=== PATIENT | female | born 1990 | race Two or more races ===

== ENCOUNTER 2022-03-07 17:45 | Emergency (ER) | payer MEDICAID ==
[~2022-03-07] VITALS: Ht 154.9 cm; Wt 65.0 kg
[2022-03-07 22:40] LABS: Basophils # (auto) 0.1 10 ^3/uL (0-0.2); Basophils % (auto) 0.8 % (0.0-2.0); Eosinophils # (auto) 0.1 10 ^3/uL (0-0.8); Eosinophils % (auto) 1.2 % (0.0-7.0); Hematocrit 36.7 % (36.0-46.0); Hemoglobin 12.3 g/dL (12.2-16.2); Lymphocytes # (auto) 2.5 10 ^3/uL (0.4-5.4); Lymphocytes % (auto) 26.5 % (10.0-50.0); Mean Corpuscular Hemoglobin 30.2 pg (28.0-32.0); Mean Corpuscular Hgb Conc. 33.4 g/dL (32.0-36.0); Mean Corpuscular Volume 90.5 fL (80.0-100.0); Monocytes # (auto) 0.6 10 ^3/uL (0-1.3); Monocytes % (auto) 6.8 % (0.0-12.0); Neutrophils # (auto) 6.1 10 ^3/uL (1.6-8.6); Neutrophils % (auto) 64.7 % (37.0-80.0); Red Blood Cells 4.06 10^6/uL (4.0-5.20); Red Cell Distribution Width 13.7 % (11.8-14.3); White Blood Cell 9.4 10^3/uL (4.4-10.8)
[2022-03-07 22:54] LABS: Albumin 2.7 g/dL (3.4-5.0); BUN/Creatinine Ratio 14.6; Calcium 8.9 mg/dL (8.5-10.1); Potassium 4.2 mmol/L (3.5-5.1)
[2022-03-07 22:58] LABS: Bilirubin, Total 0.4 mg/dL (0.2-1.0)
[2022-03-08 10:40] VITALS: BP 99/65
== END 2022-03-08 12:21 | disposition home or self-care (01) ==
LOC: ER 17:46
DX: O26.893 Other specified pregnancy related conditions, third trimester (principal); B04 Monkeypox; Z3A.28 28 weeks gestation of pregnancy
CPT/HCPCS: 36415; 76805; 80053; 84702; 85025

== ENCOUNTER 2022-05-20 07:46 | Inpatient (IN) | payer MEDICAID ==
[~2022-05-20] VITALS: Ht 157.5 cm; Wt 65.3 kg
[2022-05-20] MEDS ORDERED: PROMETHAZINE HCL 25 MG/ML 1ML IV PRN (08:30)
[2022-05-20] MEDS ORDERED: WITCH HAZEL-GLYCERIN PAD TOP PRN (08:30)
[2022-05-20] MEDS ORDERED: LIDOCAINE 2%HCL (LOCAL ANESTH.) INJ 10ml MDV IJ PRN (08:30)
[2022-05-20] MEDS ORDERED: DERMOPLAST 60ML BOTTLE TOP PRN (08:30)
[2022-05-20] MEDS ORDERED: BUTORPHANOL TARTRATE 2 MG/1 ML VIAL IV PRN ×2 (08:30)
[2022-05-20] MEDS ORDERED: PHISODERM TOP SOLN 240ML BTL TOP PRN (08:30)
[2022-05-20 09:00] LABS: Urine Bacteria NONE SEEN /hpf (None Seen); Urine Blood 2+ /uL (Negative); Urine Hyaline Cast FEW /lpf (0 - 2); Urine Specific Gravity 1.013 (1.001-1.035); Urine WBC 3 /hpf (0 - 5)
[2022-05-20 09:01] LABS: Basophils # (auto) 0.1 10 ^3/uL (0-0.2); Basophils % (auto) 0.7 % (0.0-2.0); Eosinophils # (auto) 0.1 10 ^3/uL (0-0.8); Eosinophils % (auto) 1.6 % (0.0-7.0); Hematocrit 39.3 % (36.0-46.0); Hemoglobin 13.1 g/dL (12.2-16.2); Lymphocytes # (auto) 1.9 10 ^3/uL (0.4-5.4); Lymphocytes % (auto) 27.2 % (10.0-50.0); Mean Corpuscular Hemoglobin 31.3 pg (28.0-32.0); Mean Corpuscular Hgb Conc. 33.4 g/dL (32.0-36.0); Mean Corpuscular Volume 93.7 fL (80.0-100.0); Monocytes # (auto) 0.6 10 ^3/uL (0-1.3); Monocytes % (auto) 8.5 % (0.0-12.0); Neutrophils # (auto) 4.4 10 ^3/uL (1.6-8.6); Red Blood Cells 4.19 10^6/uL (4.0-5.20); Red Cell Distribution Width 14.5 % (11.8-14.3); White Blood Cell 7.1 10^3/uL (4.4-10.8)
[2022-05-20 09:17] LABS: INR 0.9 (0.9-1.15); Partial Thromboplastin Time 28.8 sec (24.6-33.4)
[2022-05-20 09:26] LABS: Alcohol, Urine < 3.0 mg/dL (0-10); Amphetamine Screen, Urine NEGATIVE (NEGATIVE); Barbiturate Scree,Urine NEGATIVE (NEGATIVE); Benzodiazephine Screen, Urine NEGATIVE (NEGATIVE); Cannabinoid Screen, Urine NEGATIVE (NEGATIVE); Cocaine Screen, Urine NEGATIVE (NEGATIVE); Opiate Scree,Urine NEGATIVE (NEGATIVE); Phencyclidine Screen, Urine NEGATIVE (NEGATIVE)
[2022-05-20 09:31] LABS: Albumin 2.5 g/dL (3.4-5.0); BUN/Creatinine Ratio 16.9; Bilirubin, Total 0.6 mg/dL (0.2-1.0); Calcium 9.1 mg/dL (8.5-10.1); Potassium 3.7 mmol/L (3.5-5.1); Total Protein 6.4 g/dL (6.4-8.2)
[2022-05-20] MEDS: LACTATED RINGER'S 1,000 ML IV SCH ×2 (10:19→12:40)
[2022-05-20] MEDS ORDERED: LIDOCAINE 2%HCL (LOCAL ANESTH.) INJ 20ML MDV ONE (10:46)
[2022-05-20] MEDS ORDERED: LACT. RINGERS/OXYTOCIN 20UNITS 500 ML IV ONE ×2 (11:00→11:30)
[2022-05-20] MEDS ORDERED: METHYLERGONOVINE MALEATE 0.2 MG/ML AMP IM ONE (12:00)
[2022-05-20] MEDS ORDERED: LACT. RINGERS/OXYTOCIN 20UNITS 1,000 ML IV SCH (13:45)
[2022-05-20] MEDS ORDERED: ONDANSETRON ODT 4 MG TAB PO PRN (15:30)
[2022-05-20] MEDS ORDERED: ACETAMINOPHEN 325 MG TAB PO PRN (15:30)
[2022-05-20 16:47] VITALS: BP 116/66
[2022-05-20] MEDS: IBUPROFEN 600 MG TAB PO PRN (18:25)
[2022-05-20] MEDS: DOCUSATE SOD 100 MG CAP PO SCH (22:22)
[2022-05-20 23:00] VITALS: BP 99/53
[2022-05-21 03:04] VITALS: BP 91/55
[2022-05-21] MEDS: IBUPROFEN 600 MG TAB PO PRN ×2 (03:27→18:29)
[2022-05-21 07:00] VITALS: BP 97/55
[2022-05-21 07:06] LABS: RPR Non Reactive (Non Reactive)
[2022-05-21 11:00] VITALS: BP 100/61
[2022-05-21 15:00] VITALS: BP 97/50
[2022-05-21 19:30] VITALS: BP 101/53
[2022-05-21] MEDS: DOCUSATE SOD 100 MG CAP PO SCH (22:07)
[2022-05-21 23:00] VITALS: BP 107/62
[2022-05-22 03:00] VITALS: BP 102/65
[2022-05-22 07:30] VITALS: BP 108/76
[2022-05-22 11:30] VITALS: BP 104/70
== END 2022-05-22 12:53 | disposition home or self-care (01) | DRG 560 ==
LOC: UNDOADMOB 07:46 → LDRP 07:46 → OBSVTOIN 08:18 → LDRP 08:46
PROVIDERS: ADMIT Obstetrics & Gynecology; ATTEND Obstetrics & Gynecology
PROC: 10E0XZZ Delivery of Products of Conception, External Approach (ICD-10-PCS; principal; 2022-05-20)
DX: O80 Encounter for full-term uncomplicated delivery (principal); Z37.0 Single live birth; Z20.822 Contact with and (suspected) exposure to COVID-19; Z3A.39 39 weeks gestation of pregnancy
CPT/HCPCS: 36415; 59025; 59409; 80053; 80307; 81001; 81002; 84112; 85025; 85610; 85730; 86592; 86850; 86900; 86901; 87426; 94760; 94762; 96360; 96361; 96365; 96366; G0378; J2590